=== PATIENT | male | born 1970 | race Caucasian/White ===

== ENCOUNTER 2021-10-28 09:45 | Day surgery (SDC) | payer OTHER, SELFPAY ==
--- NOTE | 2021-10-28 | PATH_ITS ---
[facility] Accession Number: [id number] . 01 Material submitted: . rectum - RECTAL POLYP . 02 Diagnosis: Rectal Polyp: Tubular adenoma. . . MRV 11/01/2021 1255 Local . 02 Electronically signed: . Gabrielle Vega MD, Pathologist NPI- [id number] . 01 Gross description: . RECTAL POLYP: Received in formalin is 1 fragment(s) of jimenez, soft tissue measuring 0.1 x 0.1 x 0.1 cm submitted entirely in 1 cassette(s) /CPE 10/29/2021 1347 Local . 02 Pathologist provided ICD-10: K63.5 . 02 CPT . 472469 Specimen Comment: A courtesy copy of this report has been sent to [phone] Performed at: 01 [facility] [address] [id number] MD Ton Khan MD Phone: [phone] Performed at: 02 [facility] [address] [place], [place] [id number] MD Vianca Berger MD Phone: [phone]
[2021-10-28] MEDS: LACTATED RINGERS 1,000 ML 84 ML IV (10:02)
[2021-10-28 10:05] VITALS: BP 140/80; PULSE 56; RESP 18; TEMP 36.6; O2SAT 99; BMI 23.7
--- NOTE | 2021-10-28 10:38 | PM.HP.1 ---
History of Present Illness History of Present Illness Date Patient Seen: 10/28/21 Time Patient Seen: 10:39 Chief complaint: SCREENING COLONOSCOPY Narrative: Javi is a 51-year-old man who is here for a screening colonoscopy. He has never had 1 before. No known family history of colon cancer. Has no known hematochezia or melena. He has regular bowel movements. He would like to try to have the procedure without sedation if possible. Patient History Family & Social History Tobacco & Substance use: Smoking Status Former smoker alcohol intake current alcohol intake frequency holiday/special occasion Substance Use Type marijuana Meds Home Medications and Allergies Allergies Allergy/AdvReac Type Severity Reaction Status Date / Time No Known Drug Allergies Allergy Verified 10/28/21 09:50 Exam Vital Signs (past 8 hours): - 10/28/21 10:05 Temperature 97.9 F Pulse Rate 56 L Respiratory Rate 18 Blood Pressure 140/80 Pulse Oximetry 99 Oxygen Delivery Method Room Air Const General: healthy appearing Resp Effort & Inspection: normal respiratory effort GI Inspection: normal to inspection Assessment & Plan Assessment and plan (1) Colon cancer screening: Status: Acute Plan 51-year-old man here for colon cancer screening. We reviewed the risks and benefits and he would like to proceed. He would like to try to do the procedure without sedation if possible but is okay to receive conscious sedation if he needs it. COVID-19 COVID-19 status: Negative Result date/Date tested (Pos, Neg/Pending): 10/27/21 Time Spent With Patient Critical Care time: I spent a total of [] minutes of critical care time on this patient's care today; this time is exclusive of procedural time.
--- NOTE | 2021-10-28 11:32 | PM.OP.COLON ---
Operative Date/Time/Diagnoses Date of procedure: 10/28/21 Time of procedure: 11:32 Pre-op diagnosis: Colon cancer screening Post-op diagnosis: same Procedure & Clinicians Study performed: Colonoscopy Same procedure as scheduled: Yes Indications: Colon cancer screening Surgeon: Terry Bueno Procedure Notes SCOAP/Timeout: Yes Procedure in detail: Procedure: The patient was brought to the endoscopy suite, placed in left lateral decubitus position. The patient was connected to monitoring devices. A time-out was performed. No sedation was administered per patient request. A digital rectal exam was performed and was normal. The scope was then inserted and advanced to the cecum where the appendiceal orifice was identified and photographed. The scope was then slowly withdrawn over greater than 6 minutes. Mucosa was thoroughly inspected. There was 1 small polyp in the mid rectum which was removed with cold forceps. The scope was retroflexed in the rectum. No abnormalities noted. The scope was straightened and removed. The patient was awakened and brought to recovery. Versed: 0 mg Fentanyl: 0 mcg EBL: 0 Findings: 1 small polyp in the rectum Scope withdrawal time: 25 Post-procedure Recommendations: Will call with biopsy results Disposition: PACU
[2021-10-28 11:47] VITALS: BP 142/78; PULSE 55; RESP 14; TEMP 36.1; O2SAT 99
== END 2021-10-28 11:45 | disposition home or self-care (01) ==
PROVIDERS: PCP Family Medicine; Referring Provider Surgery; Visit Provider Surgery
PROC: 0DJD8ZZ Inspection of Lower Intestinal Tract, Via Natural or Artificial Opening Endoscopic (ICD-10-PCS; CPT 45378; principal; 2021-10-28 10:45)
DX: Z12.11 Encounter for screening for malignant neoplasm of colon (principal); D12.8 Benign neoplasm of rectum
CPT/HCPCS: 45380; J2250; J3010